=== PATIENT | male | born 1985 | race Caucasian/White ===

== ENCOUNTER 2024-02-21 12:33 | Inpatient (IN) | payer BC, SELFPAY ==
[2024-02-20 11:46] VITALS: BP 134/94
[2024-02-20 12:46] LABS: % Basophils 0.4 % (0-2); % Eosinophils 0.6 % (0-6); % Immature Granulocytes 0.3 % (0-0.5); % Lymphocytes 9.1 % (20.5-51.1); % Monocytes 6.5 % (1.7-9.3); % Neutrophils 83.1 % (42.2-75.2); Absolute Basophils 0.1 10^3/uL (0-0.2); Absolute Eosinophils 0.1 10^3/uL (0-0.7); Absolute Immature Granulocytes 0.1 10^3/uL (0-0.05); Absolute Lymphocytes 1.6 10^3/uL (1.2-3.4); Absolute Monocytes 1.1 10^3/uL (0.1-0.6); Absolute Neutrophils 14.3 10^3/uL (1.4-6.5); Hematocrit 44.5 % (39.0-52.0); Hemoglobin 15.5 g/dL (13.0-18.0); Mean Corp Hgb Conc. 34.8 g/dL (33.0-37.0); Mean Corpuscular Hgb 29.1 pg (27.0-31.0); Mean Corpuscular Volume 83.5 fL (80.0-94.0); Mean Platelet Volume 10.3 fL (7.4-10.4); Nucleated Red Blood Cells % 0 % (-); Platelet Count 252 10^3/uL (130-400); Red Blood Cell Count 5.33 10^6/uL (4.70-6.10); Red Cell Dist. Width 12.2 % (11.5-14.5); White Blood Cell Count 17.2 10^3/uL (4.8-10.8)
[2024-02-20 13:00] LABS: ALT (SGPT) 27 U/L (0-50); AST (SGOT) 19 U/L (17-59); Alkaline Phosphatase 86 U/L (38-126); Blood Urea Nitrogen 10 mg/dl (9-20); Calcium 9.6 mg/dl (8.4-10.2); Carbon Dioxide 27 mmol/L (22-30); Chloride 98 mmol/L (98-107); Glucose 109 mg/dl (70-99); Lipase 73 U/L (23-300); Potassium 4.1 mmol/L (3.5-5.1); Sodium 137 mmol/L (135-145); Total Bilirubin 1.2 mg/dl (0.2-1.3); Total Protein 8.5 g/dl (6.3-8.2); eGFR > 60.00
[2024-02-20] MEDS: NSS 1000 IV ×2 (13:17→20:39)
[2024-02-20] MEDS: TORADOL 15 MG IV (13:17)
--- NOTE | 2024-02-20 13:43 | ED.GENMED ---
History of Present Illness
<Logan Collins MD - Last Filed: 02/21/24 14:03>
General
Chief Complaint: Abdominal Pain
Source: patient
Exam Limitations: none
Time Seen by Provider: 02/20/24 12:37
Travel History
Have you had any contact with someone who has COVID-19?: No
Do you have any symptoms of coronavirus? Fever > 100 degrees, chills, cough, shortness of breath, sore throat, loss of taste or smell, muscle aches, or headache?: No
History of Present Illness
History of Present Illness:
Left lower quadrant pain. Progressive over 3 to 4 days. History of diverticulitis. Feels similar. No fever nausea or vomiting.
Past History
<Logan Collins MD - Last Filed: 02/21/24 14:03>
Past History
ED Past Medical History: Other (Recurring diverticulitis)
ED Past Surgical History: None
Social History
Tobacco: Non-smoker
Alcohol: Occasional
Personal:
Review of Systems
<Logan Collins MD - Last Filed: 02/21/24 14:03>
Review of Systems
All Other Systems: Not applicable
Constitutional: Denies fever
: Reports no symptoms
Phy Exam
<Logan Collins MD - Last Filed: 02/21/24 14:03>
Physical Exam
Physical Exam:
GENERAL: Alert and oriented in no apparent distress
EYE: Orbits normal.
NECK: Supple
CARDIAC: Regular rate and rhythm without any obvious murmurs.
LUNGS: Clear breath sounds,normal
ABDOMEN: Soft, moderate tenderness left lower quadrant. No rebound or guarding no mass or hernia
NEUROLOGICAL: Alert and oriented , grossly non-focal
SKIN: Warm and dry, no rash or lesion, no discoloration, skin intact.
MUSCULOSKELETAL: No edema,no deformity.Good color
PSYCH: Normal and appropriate interaction.
Course
<Logan Collins MD - Last Filed: 02/21/24 14:03>
Orders/Labs/Results
Orders:
Orders
02/20/24 12:35
Complete Blood Count/With Diff Urgent
Comprehensive Metabolic Panel Urgent
Lipase Urgent
02/20/24 12:41
CT Abd/Pel (IV only)-DH only Urgent
Comment:
Reason For Exam: Left lower quadrant pain history of diverticulitis
IV Insert/Care/Rem.- Treatment PRN
0.9% Sodium Chloride 1000 ml [Nss] 1,000 ml IV BOLUS
02/20/24 13:16
Ketorolac [Toradol] 15 mg .ROUTE .STK-MED ONE
Ketorolac [Toradol] 15 mg .ROUTE .STK-MED ONE
Ketorolac [Toradol] 15 mg IV NOW STA
02/20/24 14:44
HYDROmorphone [Dilaudid] 0.5 mg IV NOW STA
02/20/24 14:45
HYDROmorphone [Dilaudid] 0.5 mg .ROUTE .STK-MED ONE
HYDROmorphone [Dilaudid] 0.5 mg .ROUTE .STK-MED ONE
02/20/24 16:22
CefTRIAXone [Rocephin] 1,000 mg IV NOW STA
MetroNIDAZOLE 500 MG/100 ML [Flagyl 500 mg] 100 ml IV NOW
02/20/24 16:27
Sterile Water [Sterile Water For Injection] 10 ml .ROUTE .STK-MED ONE
Sterile Water [Sterile Water For Injection] 10 ml .ROUTE .STK-MED ONE
02/20/24 16:33
Lactate Level [Lactic Acid] Urgent
Blood Culture Q30M
XIMENA Source: Blood/Venous
Specimen Description:
Blood Culture Q30M
XIMENA Source: Blood/Venous
Specimen Description:
02/20/24 17:13
Admit/Transfer Patient As Directed
Co-Sign Provider:
Level of Care: Observation services
Assign to:: Medical/Surgical
Physician / Group: Ross/Hospitalist
Diagnosis: Acute diverticulitis
02/20/24 17:14
Code Status As Directed
Resuscitation Status: Full Code
02/20/24 18:41
0.9% Sodium Chloride 1000 ml [Nss] 1,000 ml IV 150 mls/hr
Acetaminophen [Tylenol] 650 mg PO Q4HPRN PRN
HYDROmorphone [Dilaudid] 0.5 mg IV Q4HPRN PRN
Tramadol HCl [Ultram] 50 mg PO Q6HPRN PRN
02/20/24 18:41
Activity As Directed
Activity Level: As Tolerated
Vital Signs As Directed
Frequency: Per unit guidelines
Pulse Ox/spot Check [RESP] Routine
Quantity: 1
DX Deep Vein Thrombosis Video Routine
02/20/24 20:00
Flush (0.9% Sodium Chloride) [Flush (Nss)] See Dose Instructions IV PER PROTOCOL
02/20/24 21:00
Enoxaparin Sodium [Lovenox] 40 mg SC QPM
02/20/24 22:00
Rosuvastatin Calcium [Crestor] 10 mg PO HS
02/21/24 00:00
MetroNIDAZOLE 500 MG/100 ML [Flagyl 500 mg] 100 ml IV Q8
02/21/24 07:20
Basic Metabolic Panel IN AM
Complete Blood Count/With Diff IN AM
02/21/24 08:00
Rosuvastatin Calcium [Crestor] 10 mg PO DAILY
02/21/24 Lunch
Full Liquids
At Your Request: Full Participation
Does patient need a safe tray?: No
Flush Continuous pump feedings with water (mL/hr): 25
02/21/24 12:17
ColoRectal Surgery Consult Routine
Consulting Provider: Edwin Gupta
Was physician already notified: Yes
02/21/24 16:00
CefTRIAXone [Rocephin] 1,000 mg IV Q24H
Sterile Water [Sterile Water For Injection] 10 ml IV Q24H
Abnormal Lab Results
02/20/24 02/21/24
12:35 07:20
WBC 17.2 H 10^3/uL 12.7 H 10^3/uL
(4.8-10.8) (4.8-10.8)
RBC 4.43 L 10^6/uL
(4.70-6.10)
Hct 38.5 L %
(39.0-52.0)
MPV 10.9 H fL
(7.4-10.4)
Abs Immat Gran (auto) 0.1 H 10^3/uL
(0-0.05)
Absolute Neuts (auto) 14.3 H 10^3/uL 10.1 H 10^3/uL
(1.4-6.5) (1.4-6.5)
Absolute Monos (auto) 1.1 H 10^3/uL 0.9 H 10^3/uL
(0.1-0.6) (0.1-0.6)
Neutrophils % 83.1 H % 79.0 H %
(42.2-75.2) (42.2-75.2)
Lymphocytes % 9.1 L % 12.5 L %
(20.5-51.1) (20.5-51.1)
Carbon Dioxide 21 L mmol/L
(22-30)
BUN 7 L mg/dl
(9-20)
Creatinine 0.6 L mg/dL
(0.7-1.3)
Glucose 109 H mg/dl 100 H mg/dl
(70-99) (70-99)
Total Protein 8.5 H g/dl
(6.3-8.2)
02/21/24 07:20
02/21/24 07:20
Vital Signs
Initial and Last Documented VS:
Initial Vital Signs
Temp Pulse Resp BP Pulse Ox
98.6 F 102 18 134/94 99
02/20/24 11:46 02/20/24 11:46 02/20/24 11:46 02/20/24 11:46 02/20/24 11:46
Last Documented Vital Signs
Temp Pulse Resp BP Pulse Ox
98.4 F 81 18 155/94 100
02/21/24 08:00 02/21/24 08:00 02/21/24 08:00 02/21/24 08:00 02/21/24 08:00
<Wenceslao Murphy MD - Last Filed: 02/20/24 16:26>
Orders/Labs/Results
Orders:
Orders
02/20/24 12:35
Complete Blood Count/With Diff Urgent
Comprehensive Metabolic Panel Urgent
Lipase Urgent
02/20/24 12:41
CT Abd/Pel (IV only)-DH only Urgent
Comment:
Reason For Exam: Left lower quadrant pain history of diverticulitis
IV Insert/Care/Rem.- Treatment PRN
0.9% Sodium Chloride 1000 ml [Nss] 1,000 ml IV BOLUS
02/20/24 13:16
Ketorolac [Toradol] 15 mg .ROUTE .STK-MED ONE
Ketorolac [Toradol] 15 mg .ROUTE .STK-MED ONE
Ketorolac [Toradol] 15 mg IV NOW STA
02/20/24 14:44
HYDROmorphone [Dilaudid] 0.5 mg IV NOW STA
02/20/24 14:45
HYDROmorphone [Dilaudid] 0.5 mg .ROUTE .STK-MED ONE
HYDROmorphone [Dilaudid] 0.5 mg .ROUTE .STK-MED ONE
02/20/24 16:22
CefTRIAXone [Rocephin] 1,000 mg IV NOW STA
MetroNIDAZOLE 500 MG/100 ML [Flagyl 500 mg] 100 ml IV NOW
02/20/24 16:27
Sterile Water [Sterile Water For Injection] 10 ml .ROUTE .STK-MED ONE
Sterile Water [Sterile Water For Injection] 10 ml .ROUTE .STK-MED ONE
02/20/24 16:33
Lactate Level [Lactic Acid] Urgent
Blood Culture Q30M
XIMENA Source: Blood/Venous
Specimen Description:
Blood Culture Q30M
XIMENA Source: Blood/Venous
Specimen Description:
02/20/24 17:13
Admit/Transfer Patient As Directed
Co-Sign Provider:
Level of Care: Observation services
Assign to:: Medical/Surgical
Physician / Group: Ross/Hospitalist
Diagnosis: Acute diverticulitis
02/20/24 17:14
Code Status As Directed
Resuscitation Status: Full Code
02/20/24 18:41
0.9% Sodium Chloride 1000 ml [Nss] 1,000 ml IV 150 mls/hr
Acetaminophen [Tylenol] 650 mg PO Q4HPRN PRN
HYDROmorphone [Dilaudid] 0.5 mg IV Q4HPRN PRN
Tramadol HCl [Ultram] 50 mg PO Q6HPRN PRN
02/20/24 18:41
Activity As Directed
Activity Level: As Tolerated
Vital Signs As Directed
Frequency: Per unit guidelines
Pulse Ox/spot Check [RESP] Routine
Quantity: 1
DX Deep Vein Thrombosis Video Routine
02/20/24 20:00
Flush (0.9% Sodium Chloride) [Flush (Nss)] See Dose Instructions IV PER PROTOCOL
02/20/24 21:00
Enoxaparin Sodium [Lovenox] 40 mg SC QPM
02/20/24 22:00
Rosuvastatin Calcium [Crestor] 10 mg PO HS
02/21/24 00:00
MetroNIDAZOLE 500 MG/100 ML [Flagyl 500 mg] 100 ml IV Q8
02/21/24 07:20
Basic Metabolic Panel IN AM
Complete Blood Count/With Diff IN AM
02/21/24 08:00
Rosuvastatin Calcium [Crestor] 10 mg PO DAILY
02/21/24 Lunch
Full Liquids
At Your Request: Full Participation
Does patient need a safe tray?: No
Flush Continuous pump feedings with water (mL/hr): 25
02/21/24 12:17
ColoRectal Surgery Consult Routine
Consulting Provider: Edwin Gupta
Was physician already notified: Yes
02/21/24 16:00
CefTRIAXone [Rocephin] 1,000 mg IV Q24H
Sterile Water [Sterile Water For Injection] 10 ml IV Q24H
Abnormal Lab Results
02/20/24 02/21/24
12:35 07:20
WBC 17.2 H 10^3/uL 12.7 H 10^3/uL
(4.8-10.8) (4.8-10.8)
RBC 4.43 L 10^6/uL
(4.70-6.10)
Hct 38.5 L %
(39.0-52.0)
MPV 10.9 H fL
(7.4-10.4)
Abs Immat Gran (auto) 0.1 H 10^3/uL
(0-0.05)
Absolute Neuts (auto) 14.3 H 10^3/uL 10.1 H 10^3/uL
(1.4-6.5) (1.4-6.5)
Absolute Monos (auto) 1.1 H 10^3/uL 0.9 H 10^3/uL
(0.1-0.6) (0.1-0.6)
Neutrophils % 83.1 H % 79.0 H %
(42.2-75.2) (42.2-75.2)
Lymphocytes % 9.1 L % 12.5 L %
(20.5-51.1) (20.5-51.1)
Carbon Dioxide 21 L mmol/L
(22-30)
BUN 7 L mg/dl
(9-20)
Creatinine 0.6 L mg/dL
(0.7-1.3)
Glucose 109 H mg/dl 100 H mg/dl
(70-99) (70-99)
Total Protein 8.5 H g/dl
(6.3-8.2)
02/21/24 07:20
02/21/24 07:20
Vital Signs
Initial and Last Documented VS:
Initial Vital Signs
Temp Pulse Resp BP Pulse Ox
98.6 F 102 18 134/94 99
02/20/24 11:46 02/20/24 11:46 02/20/24 11:46 02/20/24 11:46 02/20/24 11:46
Last Documented Vital Signs
Temp Pulse Resp BP Pulse Ox
98.4 F 81 18 155/94 100
02/21/24 08:00 02/21/24 08:00 02/21/24 08:00 02/21/24 08:00 02/21/24 08:00
<Logan Collins MD - Last Filed: 02/21/24 14:03>
MDM/Problems Addressed
Differential Diagnosis Includes:
Very suspicious for diverticulitis. Moderate leukocytosis. CT scan pending
<Logan Collins MD - Last Filed: 02/21/24 14:03>
*Radiology
Radiology exam reviewed: radiology read reviewed (Severe acute diverticulitis)
*Pulse Oximetry
Patient hypoxic: no
*Critical Care Note
Total Time (30-74mins, 75-104mins- exclusive of procedures): Not Applicable
<Wenceslao Murphy MD - Last Filed: 02/20/24 16:26>
Update Note
Update Note:
UPDATE (Wenceslao Murphy MD)
I saw and examined patient after signout and reviewed all labs and imaging.
Focused HPI: 38-year-old male with history of hyperlipidemia and prior diverticulitis who presented to the emergency room today for evaluation of left lower quadrant abdominal pain for the past week. No nausea or vomiting, no diarrhea. Similar to
prior episodes of diverticulitis.
Physical exam: Awake alert and not in distress. Abdomen soft, markedly tender in left lower quadrant with voluntary guarding.
Medical Decision Makin-year-old male presents for evaluation of left lower quadrant abdominal pain worsening over the past week similar prior episodes of diverticulitis. He arrived was tachycardic but with otherwise normal vitals. He had lab
work sent off including a CBC which showed a significant leukocytosis to 17.2. His CMP was unremarkable. He is pending CT of the abdomen pelvis. He received an initial dose of Toradol without improvement in his pain required IV Dilaudid. His
pain is reasonably controlled at present. Will continue to monitor and reassess after the above. Given multiple SIRS criteria and concern for intra-abdominal infection I did add on lactate and blood cultures.
CT of the abdomen pelvis shows severe acute diverticulitis with no clear signs of perforation or abscess; nevertheless with his significant pain and multiple SIRS criteria I think he warrants admission for IV antibiotics and pain management. Case
discussed with hospitalist for admission.
ED Attending Note
<Logan Collins MD - Last Filed: 02/21/24 14:03>
-
Portions of this chart may have been created with voice recognition software.� Occasional wrong word or��sound alike� substitutions may have occurred due to the inherent limitations of voice recognition software.
Discharge Plan
Departure
Patient Disposition: Admit
Date of Disposition: 02/20/24
Time of Disposition: 16:25
Admit to doctor: Ross
Presentation/result/management discussed w/ accepting MD/DO: Hospitalist
Discharge Problem:
Acute diverticulitis
Interventions
Interventions:
*Risk Screen - Suicide Last Done: 02/20/24 11:46
*General Assessment Last Done: 02/20/24 12:29
*Neglect/Abuse Screening Last Done: 02/20/24 11:46
ED- Fall Risk Assessment Last Done: 02/20/24 13:00
*ED COVID-19 Vaccine History Last Done: 02/20/24 11:46
*Nursing Disposition Last Done: 02/20/24 18:35
MW-Zagqji-Yzqqdckyck Assessment Last Done: 02/20/24 13:00
Discharge Date and Time
Discharge Date/Time: 02/20/24 18:36
[2024-02-20] MEDS: DILAUDID 0.5 MG IV (14:51)
[2024-02-20] MEDS: ROCEPHIN 1000 MG IV (16:36)
[2024-02-20] MEDS: FLAGYL 500 MG 100 IV (16:36)
[2024-02-20 16:44] VITALS: BP 139/97
[2024-02-20 16:52] LABS: Lactic Acid 0.9 mmol/L (0.7-2.0)
--- NOTE | 2024-02-20 16:52 | HPS.HSE ---
Family Physician
-
Family Physician: Maura Bravo
Chief Complaint
-
LLE abdominal pain
History of Present Illness
The patient is a 38 yo male with PMH significant for diverticulitis (an episode last summer and 05/2022) that have resolved previously with antibiotics, HLD, presents to the ED due to left lower quadrant abdominal pain for the past several days. The
patient ate only clear liquids yesterday and today, however the pain became worse which brought him into the ED. He denies fever, no n/v/d, no CP, no SOB, no blood in bowel movements.In ED, he is tachycardic (pulse 111), WBC 17.2. CT a/p in ED shows
severe acute diverticulitis with no clear signs of perforation or abscess.
ED txt:
IVF 1 liter bolus, IV Ketorolac, IV Dilaudid, IV Rocephin, IV Flagyl
Medical History
Past Medical History
Past Medical History: Reports Other (Diverticulitis (2 episodes since 2021))
Past Surgical History: Reports None
Social History
Tobacco: Non-smoker
Alcohol: Occasional
Drug: Marijuana (occasional )
Living: With Family ( and 2 children)
Family History
Family History: Other (Mother w diverticulitis)
Allergies / Home Medications
Allergies reflects when Allergies were last updated in [facility].
Home Medications with original date entered in [facility]
Allergy/Medication List:
Allergies
Allergy/AdvReac Type Severity Reaction Status Date / Time
No Known Allergies Allergy Verified 02/20/24 11:49
Home Medications
rosuvastatin 10 mg tablet 10 mg PO DAILY 02/20/24
Review of Systems
-
A 12 point ROS was completed and negative except as noted: Yes
Physical Exam
Vital Signs
Vital Signs
Temp Pulse Resp BP Pulse Ox
98.6 F 111 18 139/97 98
02/20/24 11:46 02/20/24 16:44 02/20/24 16:44 02/20/24 16:44 02/20/24 16:44
Physical Exam
General: Well Developed, Well Nourished, No Apparent Distress and Conversant
HEENT: NormoCephalic, Anicteric and Moist mucous membranes
Respiratory: Clear
Cardiac: S1/S2 and Tachycardia
GI: Soft and Tender (acutely tender LLQ with voluntary guarding, no peritoneal signs)
Musculoskeletal: No Clubbing, No Cyanosis and No Edema
Skin: Warm and Dry
Neuro: AO x 3, No Motor Deficits and Nonfocal/grossly intact
Laboratory Results
-
02/20/24 12:35
02/20/24 12:35
Laboratory Results
Lactic Acid 0.9 mmol/L (0.7-2.0) 02/20/24 16:33
Total Bilirubin 1.2 mg/dl (0.2-1.3) 02/20/24 12:35
AST 19 U/L (17-59) 02/20/24 12:35
ALT 27 U/L (0-50) 02/20/24 12:35
Alkaline Phosphatase 86 U/L (38-126) 02/20/24 12:35
Lipase 73 U/L (23-300) 02/20/24 12:35
Data Reviewed
-
CT Scan: Report Reviewed by me ( 1. SEVERE ACUTE DIVERTICULITIS in the DISTAL DESCENDING COLON. 2. Small amount of peritoneal fluid in the left paracolic gutter and pelvis. 3. No CT evidence for pericolonic abscess or pneumoperitoneum.)
Impression/Plan
-
IMPRESSION:
#Acute severe diverticulitis in the distal descending colon with history of recurrent diverticulitis with leukocytosis and tachycardia
CT a/p:
- SEVERE ACUTE DIVERTICULITIS in the DISTAL DESCENDING COLON.
- Small amount of peritoneal fluid in the left paracolic gutter and pelvis.
- No CT evidence for pericolonic abscess or pneumoperitoneum.
-monitor clinically
-clear liquids
-IVF
-IV abx - continue Rocephin and Flagyl
#HLD
- statin
DVT proph - Lovenox
Full Code
[2024-02-20 18:47] VITALS: BP 144/92
--- NOTE | 2024-02-20 19:00 | PTCARENOTE ---
Pt was received from ED at 1850. Pt ambulated to the room. Temp 101.2 on arrival. Pt complaining of 4/10 LLQ abd pain. Reviewed available pain meds and the care plan with pt. at the bedside.
[2024-02-20 20:07] VITALS: BMI 28.4
[2024-02-20] MEDS: LOVENOX 40 MG SC (20:39)
[2024-02-20] MEDS: ULTRAM 50 MG PO (20:40)
[2024-02-20] MEDS: CRESTOR 10 MG PO (20:40)
[2024-02-21 00:04] VITALS: BP 133/87
[2024-02-21] MEDS: FLAGYL 500 MG 100 IV ×4 (00:15→23:14)
[2024-02-21] MEDS: NSS 1000 IV (02:55)
[2024-02-21] MEDS: TYLENOL 650 MG PO ×4 (02:58→20:15)
[2024-02-21 07:56] LABS: % Basophils 0.5 % (0-2); % Eosinophils 0.6 % (0-6); % Immature Granulocytes 0.3 % (0-0.5); % Lymphocytes 12.5 % (20.5-51.1); % Monocytes 7.1 % (1.7-9.3); Absolute Basophils 0.1 10^3/uL (0-0.2); Absolute Eosinophils 0.1 10^3/uL (0-0.7); Absolute Lymphocytes 1.6 10^3/uL (1.2-3.4); Absolute Monocytes 0.9 10^3/uL (0.1-0.6); Absolute Neutrophils 10.1 10^3/uL (1.4-6.5); Hematocrit 38.5 % (39.0-52.0); Mean Corp Hgb Conc. 33.8 g/dL (33.0-37.0); Mean Corpuscular Hgb 29.3 pg (27.0-31.0); Mean Corpuscular Volume 86.9 fL (80.0-94.0); Mean Platelet Volume 10.9 fL (7.4-10.4); Nucleated Red Blood Cells % 0 % (-); Platelet Count 192 10^3/uL (130-400); Red Blood Cell Count 4.43 10^6/uL (4.70-6.10); Red Cell Dist. Width 12.1 % (11.5-14.5); White Blood Cell Count 12.7 10^3/uL (4.8-10.8)
[2024-02-21 08:00] VITALS: BP 155/94
[2024-02-21 08:06] LABS: Blood Urea Nitrogen 7 mg/dl (9-20); Calcium 8.9 mg/dl (8.4-10.2); Carbon Dioxide 21 mmol/L (22-30); Chloride 105 mmol/L (98-107); Estimated Creatinine Clearance > 125 ml/min; Glucose 100 mg/dl (70-99); Potassium 4.1 mmol/L (3.5-5.1); Sodium 137 mmol/L (135-145); eGFR > 60.00
--- NOTE | 2024-02-21 12:26 | W.PN.HOSP.TC ---
Today's Communication/Plan
-
follow WBC count
consult CRS
advance to full liquids
Assessment / Plan
Assessment / Plan
Pt is a 38 year old male
Acute severe diverticulitis in the distal descending colon with history of recurrent diverticulitis with leukocytosis and tachycardia--no abscess or perforation--tolerating clears--consult CRS (may need resection as outpt)--cont
rocephin/flagyl--advance to full liquids
HLD-- statin
DVT proph - Lovenox
Code status --Full Code
Anticipated Discharge: 24 - 48 hours
Subjective/Interval History
-
Date of Service: February 21, 2024
pt tolerating clears--WBC improved--pain improved
Objective Data
-
Labs:
Laboratory Results
02/21/24
07:20
WBC 12.7 H
Hgb 13.0
Hct 38.5 L
Plt Count 192 D
Sodium 137
Potassium 4.1
Chloride 105
Carbon Dioxide 21 L
BUN 7 L
Creatinine 0.6 L
Glucose 100 H
Calcium 8.9
Vital Signs:
max temp for 24 hours
02/20/24
18:47
Temp 101.2 F H
Vital Signs
Temp Pulse Resp BP Pulse Ox
98.4 F 81 18 155/94 100
02/21/24 08:00 02/21/24 08:00 02/21/24 08:00 02/21/24 08:00 02/21/24 08:00
I&O
02/20/24 02/21/24 02/22/24
06:59 06:59 06:59
Intake Total 2109
Balance 2109
Review of Systems
-
All other systems: Reviewed and negative
Abdomen/GI: Reports Abdominal Pain (improved)
Physical Exam
-
General: Well Developed, Well Nourished and No Apparent Distress
HEENT: Normocephalic and Atraumatic
Respiratory: Clear to Auscultation; Negative Wheezes or Rhonchi
Cardiac: Regular Rhythm and S1/S2; Negative Murmur
GI: Soft and Tender (LLQ without guarding or rebound)
Musculoskeletal: No Clubbing, No Cyanosis and No Edema
Neuro: Awake and Alert
--- NOTE | 2024-02-21 12:50 | CON.CRS ---
Addendum entered and electronically signed by Edwin Gupta MD 02/21/24 14:14:
Patient seen and examined. Reassessment plan as documented below.
Patient is a 38 yo M with a PMH notable for uncomplicated diverticulitis requiring hospitalization in 2021 ( and 2022 ([place]) who presents with 2 to 3 days of LLQ abdominal pain. He attempted medical management at home with a clear liquid diet
without significant improvement. His persistent pain prompted presentation to the ED. No fevers or chills at home, noted to be febrile in the ED. No nausea or vomiting. Passing flatus and looser nonbloody stool. Currently he feels well with
improved pain.
Gen: NAD
Abd: soft, mild tenderness in LLQ, ND, non-peritoneal
Labs and imaging were reviewed.
Patient is a 38 yo M p/w acute uncomplicated diverticulitis
The natural history and pathophysiology of diverticulitis was discussed. Role of surgical intervention for complicated episodes that do not resolve with medical management, as well as elective sigmoid resection to prevent future episodes of
diverticulitis was discussed. No plans for surgical intervention at this time. Recommend medical management with IV antibiotics. All questions answered.
-- No plans for surgery at this time
-- Fulls
-- Zosyn
-- Pain control: Tylenol and Toradol
Original Note:
Medical History
-
Chief Complaint: abdominal pain
History of Present Illness:
Mr Erickson is a 38 yo male who has a history of uncomplicated diverticulitis requiring hospitalization in the summer of 2021 () and 2022([place]) who presents with LLQ abdominal pain which began mid week around . He stopped solid foods and
started a clear liquid diet at home without much improvement. He noted continued worsening symptoms and presented Thursday through the ED for evaluation. He denies fevers [employer] but did have a fever yesterday evening of 101.2 with no further fevers
since that time. He notes his symptoms have lessened since presentation although still present. LLQ is moderately tender to palpation on exam.
Past Medical History
Past Medical History: Diverticulitis
Past Surgical History: None
Social History
Tobacco: Non-Smoker
Alcohol: Occasional
Personal:
Living: With Family
Employment: Employed (works in [employer])
Family History
Family History: Reviewed & Not Pertinent
Allergies / Home Medications
Allergy/AdvReac Type Severity Reaction Status Date / Time
No Known Allergies Allergy Verified 02/20/24 11:49
�Medication �Instructions �Recorded �Confirmed �Type
rosuvastatin 10 mg tablet 10 mg PO DAILY High Cholesterol 02/20/24 02/20/24 History
Review of Systems
-
History Source: Patient
All other systems: Negative unless noted
A 10 point review of systems was completed, and was negative except as per HPI.
Physical Exam
Vital Signs
Temp 98.4 F 02/21/24 08:00
Pulse 81 02/21/24 08:00
Resp Rate 18 02/21/24 08:00
Blood pressure 155/94 02/21/24 08:00
SaO2 100 02/21/24 08:00
02/20/24 02/21/24 02/22/24
06:59 06:59 06:59
Actual Weight 84.623 kg
Body Mass Index (BMI) 28.4
Lab Results / Allergies
02/21/24 07:20
02/21/24 07:20
WBC 12.7 10^3/uL (4.8-10.8) H 02/21/24 07:20
Hgb 13.0 g/dL (13.0-18.0) 02/21/24 07:20
Hct 38.5 % (39.0-52.0) L 02/21/24 07:20
Plt Count 192 10^3/uL (130-400) D 02/21/24 07:20
Abs Immat Gran (auto) 0.0 10^3/uL (0-0.05) 02/21/24 07:20
Neutrophils % 79.0 % (42.2-75.2) H 02/21/24 07:20
Allergy/AdvReac Type Severity Reaction Status Date / Time
No Known Allergies Allergy Verified 02/20/24 11:49
Physical Exam
General: Well Developed and No Apparent Distress
HEENT: Normocephalic
Respiratory: Non Labored Respirations
GI: Soft, Non Distended and Tender (moderate to deep palpation to the LLQ)
Skin: Warm and Dry
Neuro: Awake, Alert and AO x 3
Psych: Calm
Data Reviewed
-
CT Scan: Image Personally Visualized and interpreted, Report Reviewed by me, Discussed with Physician and Discussed with Patient
Labs: Labs Reviewed by me, Discussed with Physician and Discussed with Patient
Old Records: Reviewed
Assessment / Plan
-
38 yo male with h/o diverticulitis x2 presenting yesterday with 3-4 day history of LLQ discomfort and feeling unwell. On admission, fever and leukocytosis noted. WBC trending down today without further fevers. CT imaging reviewed with significant
sigmoid diverticulitis present without evidence of abscess or perforation. No pneumoperitoneum. Improving with IV abx thus far.
Recommend outpatient colorectal follow up to discuss risk/benefits of elective surgery for removal of the diseased portion of the sigmoid colon to prevent recurrence after this current episode has resolved. No need for emergent operative
intervention as he continues to improve with medical/supportive management.
--Ok to advance to FLD
--Analgesics/Antiemetics as needed
--Continue IV ABX
[2024-02-21 15:32] VITALS: BP 142/81
[2024-02-21] MEDS: STERILE WATER FOR INJECTION 10 ML IV (15:50)
[2024-02-21] MEDS: ROCEPHIN 1000 MG IV (15:50)
[2024-02-21] MEDS: LOVENOX 40 MG SC (17:19)
[2024-02-21] MEDS: ULTRAM 50 MG PO (17:34)
[2024-02-21] MEDS: CRESTOR 10 MG PO (20:15)
[2024-02-21 23:02] VITALS: BP 134/89
[2024-02-22 05:56] LABS: Hemoglobin 13.4 g/dL (13.0-18.0); Mean Corp Hgb Conc. 35.3 g/dL (33.0-37.0); Mean Corpuscular Hgb 29.6 pg (27.0-31.0); Mean Corpuscular Volume 84.1 fL (80.0-94.0); Mean Platelet Volume 10.8 fL (7.4-10.4); Platelet Count 204 10^3/uL (130-400); Red Blood Cell Count 4.52 10^6/uL (4.70-6.10); Red Cell Dist. Width 12.2 % (11.5-14.5); White Blood Cell Count 10.1 10^3/uL (4.8-10.8)
[2024-02-22 06:24] LABS: ALT (SGPT) 16 U/L (0-50); AST (SGOT) 15 U/L (17-59); Albumin 3.8 g/dl (3.5-5.0); Alkaline Phosphatase 75 U/L (38-126); Blood Urea Nitrogen 6 mg/dl (9-20); Calcium 8.9 mg/dl (8.4-10.2); Carbon Dioxide 24 mmol/L (22-30); Chloride 104 mmol/L (98-107); Estimated Creatinine Clearance > 125 ml/min; Glucose 94 mg/dl (70-99); Magnesium 2.2 mg/dl (1.6-2.3); Sodium 140 mmol/L (135-145); Total Bilirubin 0.5 mg/dl (0.2-1.3); Total Protein 6.8 g/dl (6.3-8.2); eGFR > 60.00
[2024-02-22 08:20] VITALS: BP 145/94
[2024-02-22] MEDS: FLAGYL 500 MG 100 IV (09:22)
--- NOTE | 2024-02-22 09:28 | W.PN.HOSP.TC ---
Today's Communication/Plan
-
Discharge today
Assessment / Plan
Assessment / Plan
Physical Exam
General: Well Developed, Well Nourished and No Apparent Distress
HEENT: Normocephalic and Atraumatic
Respiratory: Clear to Auscultation Bilaterally
Cardiac: Regular Rhythm and S1/S2=
GI: Soft and Minimal Tenderness (LLQ without guarding or rebound). Positive bowel sounds.
Musculoskeletal: No Cyanosis and No Edema
Neuro: Awake and Alert

Assessment/Plan
Pt is a 38 year old male
Acute severe diverticulitis in the distal descending colon with history of recurrent diverticulitis with leukocytosis and tachycardia--no abscess or perforation--tolerating clears--consult CRS (may need resection as outpt)--cont rocephin/flagyl
--diet advanced to low residue diet
-No fever in the past almost 48 hours
-Tachycardia has improved
-Leukocytosis has resolved
-Tolerating diet
-Transition to Augmentin either 875 mg Q8H through March 05, 2024 to complete 14 days of antibiotics
-Outpatient follow-up with surgeon Dr. Gupta
-Pain control with Tylenol and NSAIDs
HLD-- statin
DVT proph - Lovenox
Code status --Full Code
More than 30 minutes spent in discharge including
Final examination of the patient
Summarizing hospital stay
Instructions for continuing care to all relevant caregivers
Preparation of discharge records, prescriptions, and referral forms
Total time spent (in minutes): 39
Anticipated Discharge: Today
Subjective/Interval History
-
Date of Service: February 22, 2024
Patient was seen and examined. He reported essentially no to minimal abdominal pain, no vomiting, wants to go home today.
Objective Data
-
Labs:
Laboratory Results
02/22/24
05:25
WBC 10.1
Hgb 13.4
Hct 38.0 L
Plt Count 204
Sodium 140
Potassium 4.0
Chloride 104
Carbon Dioxide 24
BUN 6 L
Creatinine 0.7
Glucose 94
Calcium 8.9
Total Bilirubin 0.5
AST 15 L
ALT 16
Alkaline Phosphatase 75
Vital Signs:
Vital Signs
Temp Pulse Resp BP Pulse Ox
98.8 F 95 16 145/94 98
02/22/24 08:20 02/22/24 08:20 02/22/24 08:20 02/22/24 08:20 02/22/24 08:20
I&O
02/21/24 02/22/24 02/23/24
06:59 06:59 06:59
Intake Total 2109 1540 / 1540
Output Total 200 / 200
Balance 2109 1340 / 1340
--- NOTE | 2024-02-22 10:08 | W.PN.GS2 ---
Addendum entered and electronically signed by Edwin Gupta MD 02/22/24 10:44:
Patient seen and examined. Assessment plan as documented below.
Pain improved. Afebrile. Tolerating full's. No nausea or vomiting. Passing flatus and stool.
Gen: NAD
Abd: soft, NT/ND, non-peritoneal
Patient is a 38 yo M p/w acute uncomplicated diverticulitis (3rd episode)
AFVSS
Normal WBC
Tolerating diet advancement
-- Advance to LRD
-- No plans for surgery at this time, will plan outpatient follow up with colorectal surgical team to discuss elective surgery to prevent recurrence
-- Pain control: Tylenol and Toradol
-- Outpatient follow-up with CRS
Clear for d/c from surgical standpoint this afternoon on PO abx if tolerating diet
Original Note:
Today's Communication / Plan
-
Advance diet
Dispo planning
Assessment / Plan
-
38 yo M p/w acute uncomplicated diverticulitis (3rd episode)
AFVSS
Normal WBC
Tolerating diet advancement
-- Advance to LRD
-- No plans for surgery at this time, will plan outpatient follow up with colorectal surgical team to discuss elective surgery to prevent recurrence
-- Pain control: Tylenol and Toradol
Clear for d/c from surgical standpoint this afternoon on PO abx if tolerating diet
Subjective Data
-
Date of Service: February 22, 2024
Patient seen and examined at bedside with Dr. Gupta. Denies n/v. Tolerating liquids. Pain improving.
Objective Data
-
Intake and Output
02/21/24 02/22/24 02/23/24
06:59 06:59 06:59
Intake Total 2109 1540 / 1540
Output Total 200 / 200
Balance 2110 / 2110 1340 / 1340
Intake:
Oral fluids 360 / 360 1440 / 1440
IV fluids (Total) 1650 / 1650
IV piggybacks 100 / 100 100 / 100
Output:
Urine, Voided 200 / 200
Other:
Number of approximated MODERATE 1
amounts of urine
How many times incontinent 2
MODERATE amount urine
Vital Signs
Temp Pulse Resp BP Pulse Ox
98.8 F 95 16 145/94 98
02/22/24 08:20 02/22/24 08:20 02/22/24 08:20 02/22/24 08:20 02/22/24 08:20
Lab Results
02/22/24 05:25
02/22/24 05:25
Calcium 8.9 mg/dl (8.4-10.2) 02/22/24 05:25
Magnesium 2.2 mg/dl (1.6-2.3) 02/22/24 05:25
Total Bilirubin 0.5 mg/dl (0.2-1.3) 02/22/24 05:25
AST 15 U/L (17-59) L 02/22/24 05:25
ALT 16 U/L (0-50) 02/22/24 05:25
Alkaline Phosphatase 75 U/L (38-126) 02/22/24 05:25
Total Protein 6.8 g/dl (6.3-8.2) 02/22/24 05:25
Albumin 3.8 g/dl (3.5-5.0) 02/22/24 05:25
Physical Exam
-
NAD
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
--- NOTE | 2024-02-22 10:56 | CM ---
Patient seen bedside.
IA completed.
Patient lives with spouse and 2 children in a 2 story home with 2 steps to enter.
No difficulty with steps.
patient works and drives.
No assistive devices, independent prior to dmission.
denies home care needs.
PCP: DR Sotomayor
Pharmacy: [facility]
Plan: home no needs.
[2024-02-22 15:03] VITALS: BP 138/92
--- NOTE | 2024-02-22 15:26 | W.DS.TRANS ---
DC Summary - Process Tech
-
Discharge Instructions:
Discharge Diagnosis/Procedures Acute severe diverticulitis with history of
recurrent diverticulitis
Hyperlipidemia
Diet Low Residue,Low Fat,Low Cholesterol
Additional Diets Eat a low fiber diet for the next 2-3 weeks,
check with your outpatient physician(s) before
changing your low fiber diet to something else
Activity As tolerated
Instructions: Low Fiber Diet
Amoxicillin and Clavulanate
Stand-Alone Forms:
Changes to Home Medications: Yes
Discharge Medications:
DC Medications w/original date entered in [facility]
rosuvastatin 10 mg tablet 10 mg PO DAILY High Cholesterol 02/20/24
amoxicillin 875 mg-potassium clavulanate 125 mg tablet 1 tab PO Q8H #39 tabs 02/22/24
Home Medication Changes
Amoxicillin-Potassium Clavulanate is a new medication.
Pending Results: Yes
Additional Pending Results:
Microbiology/culture results from the hospitalization
Total time spent discharging patient (in min): 39
--- NOTE | 2024-02-23 18:42 | W.DCSUMMARY ---
Discharge Summary
Discharge Data
Date of Admission: 02/21/24
Date of Discharge: 02/22/24
Total time spent discharging patient (in min): 39
-
Pending Results: Yes
Additional Pending Results:
Microbiology/culture results from the hospitalization
Hospital Course
38 y/o male with past medical history significant for diverticulitis (an episode last summer and 05/2022) that have resolved previously with antibiotics and hyperlipidemia, presented to the emergency department due to left lower quadrant abdominal
pain for the previous several days. In the emergency room, patient was tachycardic (pulse 111 beats per minute), leukocytosis with WBC 17.2. CT a/p in ED showed severe acute diverticulitis with no clear signs of perforation or abscess (however
please see full CT imaging report for all the details). Patient was started on antibiotics and intravenous fluids. The surgery team was consulted and they recommended surgery during hospitalization, and discussed with the patient elective sigmoid
resection to prevent future episodes of diverticulitis. Patient clinically improved, he was tolerating an advanced diet, his leukocytosis resolved and he was afebrile, and therefore he was discharged with antibiotics.
Discharge Plan
-
Patient Disposition: Home (Routine Discharge)
Discharge Diagnosis/Procedures: Acute severe diverticulitis with history of recurrent diverticulitis
Hyperlipidemia
Diet: Low Fat, Low Cholesterol and Low Residue
Additional Diets: Eat a low fiber diet for the next 2-3 weeks, check with your outpatient physician(s) before changing your low fiber diet to something else
Activity: As tolerated
Instructions: Low Fiber Diet, Amoxicillin and Clavulanate
Referrals:
Logan Villagomez MD [Active] - in two to four weeks
Maura Bravo MD [Family Provider] - in less than 1 week
Additional Discharge Medication Instructions: Amoxicillin-Pot Clavulanate is a new medication.
Prescriptions:
New
amoxicillin-pot clavulanate 875-125 mg tablet
1 tab PO Q8H Qty: 39 0RF
Continued
rosuvastatin 10 mg tablet
10 mg PO DAILY
Discharge Orders:
Discharge Patient (As Directed); Ordered 02/22/24
Ordered By: Derek Edwards
Discharge Date and Time
Discharge Date/Time: 02/22/24 15:45
Print Language: FRISIAN
== END 2024-02-22 15:45 | disposition home or self-care (01) | DRG 392 ==
LOC: 4 WEST ACU 12:33
PROVIDERS: Emergency Medicine; Internal Medicine; ADMITTING PHYSICIAN Internal Medicine; ATTENDING PHYSICIAN Hospitalist; CONSULT PHYSICIAN Surgery; EMERGENCY PHYSICIAN Emergency Medicine; FAMILY PHYSICIAN Internal Medicine
DX: K57.32 Diverticulitis of large intestine without perforation or abscess without bleeding (principal); E78.00 Pure hypercholesterolemia, unspecified
CPT/HCPCS: 74177; 80048; 80053; 83605; 83690; 83735; 85025; 85027; 87040; 93005; 96361; 96365; 96375; 99285; Q9967

== ENCOUNTER 2024-11-26 15:07 | Emergency (ER) | payer BC, SELFPAY ==
--- NOTE | 2024-11-26 17:07 | ED.GENMED ---
History of Present Illness
General
Chief Complaint: Musculo-Skeletal Complaint
Source: patient
Exam Limitations: none
Time Seen by Provider: 11/26/24 17:05
Nursing documentation reviewed up to this point in time: agreed with
History of Present Illness
History of Present Illness:
This is a 39-year-old male with past medical history of hyperlipidemia who presents emergency department today with concerns of right elbow pain. Patient reports that he was lifting up a heavy couch when he felt and heard a pop in his right elbow
and states that he noticed some bulging over his right bicep. Patient states that he does have full range of motion of his right upper extremity. He states that he did have transient numbness and tingling as well. He states that after this
occurred, he took some Motrin and reports Emergency Department. Patient states that he has never had anything like this occur in the past, does not currently follow with orthopedist. Patient denies any other injuries.
Past History
Past History
ED Past Medical History: Other (Recurring diverticulitis)
ED Past Surgical History: None
Social History
Tobacco: Non-smoker
Alcohol: Occasional
Personal:
Review of Systems
Review of Systems
All Other Systems: ROS reviewed and negative except as documented in HPI and ROS
Phy Exam
Physical Exam
Physical Exam:
General: Patient is well appearing and in no acute distress; non-toxic
Skin: Warm and dry, no rashes or lesions
Head: Normocephalic, atraumatic
Eyes: Sclera non-icteric. EOMs intact.
Cardiac: Regular rate and rhythm, no murmur
Peripheral Vascular: No lower extremity swelling or edema. 2+ brachial, radial, and ulnar pulses on the right.
Pulm: Normal respiratory effort, no wheezes, rales, or rhonchi
Musculoskeletal: No tenderness palpation of the right upper extremity. Full range of motion of the right upper extremity. Mild Doug deformity noted to right bicep.
Neuro: CN II-XII intact, no focal neurologic deficits.
Psychiatric: Appropriate mood and affect.
Course
Orders/Labs/Results
Orders:
Orders
11/26/24 15:18
Elbow, 3 View, Right [CR Elbow - Right Min 3 Views] Urgent
Comment:
Reason For Exam: pain, decreased ROM
11/26/24 17:33
Sling Right-Treatment ONCE
Vital Signs
Initial and Last Documented VS:
Initial Vital Signs
Temp Pulse Resp Pulse Ox
98.6 F 78 20 98
11/26/24 15:16 11/26/24 15:16 11/26/24 15:16 11/26/24 15:16
Last Documented Vital Signs
Temp Pulse Resp Pulse Ox
98.6 F 78 20 98
11/26/24 15:16 11/26/24 15:16 11/26/24 15:16 11/26/24 15:16
MDM/Problems Addressed
Differential Diagnosis Includes:
Musculoskeletal sprain/strain, elbow fracture, biceps tendon rupture
MDM/Problems Addressed:
39-year-old male past medical history of hyperlipidemia presents emergency department today with concerns of right elbow pain following lifting up a heavy couch. He states that he felt a pop in pain right away and noticed some bulging in his right
upper arm. History and physical exam consistent with partial biceps tendon rupture. X-ray negative for acute fracture. Case reviewed with orthopedist on-call. Will place in sling and will have patient call orthopedic office for prompt follow-up.
Return precautions discussed. Patient stable for discharge.
*Pulse Oximetry
Patient hypoxic: no
*Critical Care Note
Total Time (30-74mins, 75-104mins- exclusive of procedures): Not Applicable
ED Attending Note
-
Portions of this chart may have been created with voice recognition software.� Occasional wrong word or��sound alike� substitutions may have occurred due to the inherent limitations of voice recognition software.
Discharge Plan
Departure
Patient Disposition: Home (Routine Discharge)
Date of Disposition: 11/26/24
Time of Disposition: 17:36
Patient with high blood pressure during this ER visit?: No
Condition: Good
Discharge Problem:
Traumatic partial tear of biceps tendon
Instructions: Biceps Tendon Rupture (DC)
Prescriptions:
No Action
rosuvastatin 10 mg tablet
10 mg PO DAILY
amoxicillin-pot clavulanate 875-125 mg tablet
1 tab PO Q8H Qty: 39 0RF
Referrals:
Maura Bravo MD [Family Provider] -
Matteo Berger MD [Active] -
Activity Restrictions/Additional Instructions:
Please call attached number to schedule appointment to see the orthopedist.
You can take Tylenol and Motrin as needed for your symptoms.
PLEASE RETURN EMERGENCY DEPARTMENT SHOULD YOU DEVELOP LOSS OF SENSATION IN YOUR UPPER EXTREMITY, INABILITY TO MOVE YOUR ARM, LOSS OF SENSATION, ACUTE WORSENING OF YOUR PAIN,PALLOR, OR ANY OTHER SIGNS OR SYMPTOMS WORRISOME TO YOU.
Interventions
Interventions:
*Risk Screen - Suicide Last Done: 11/26/24 15:16
*General Assessment Last Done: 11/26/24 15:16
*Neglect/Abuse Screening Last Done: 11/26/24 17:52
*ED- Fall Risk Assessment Last Done: 11/26/24 17:52
*ED COVID-19 Vaccine History Last Done: 11/26/24 17:52
*Nursing Disposition Last Done: 11/26/24 17:53
ED-Musculoskeletal Assessment Last Done: 11/26/24 17:52
Discharge Date and Time
Discharge Date/Time: 11/26/24 17:53
Print Language: URDU
== END 2024-11-26 17:53 | disposition home or self-care (01) ==
LOC: EMR 15:07
PROVIDERS: EMERGENCY PHYSICIAN Emergency Medicine; FAMILY PHYSICIAN Internal Medicine
DX: S46.211A Strain of muscle, fascia and tendon of other parts of biceps, right arm, initial encounter (principal); X50.0XXA Overexertion from strenuous movement or load, initial encounter; E78.5 Hyperlipidemia, unspecified
CPT/HCPCS: 99283; 73080

== ENCOUNTER 2025-01-02 11:22 | Emergency (ER) | payer BC, SELFPAY ==
[2025-01-02 11:27] VITALS: BP 160/100
[2025-01-02 11:54] LABS: % Basophils 1.1 % (0-2); % Immature Granulocytes 0.2 % (0-0.5); % Lymphocytes 38.6 % (20.5-51.1); % Monocytes 6.2 % (1.7-9.3); % Neutrophils 51.9 % (42.2-75.2); Absolute Basophils 0.1 10^3/uL (0-0.2); Absolute Eosinophils 0.1 10^3/uL (0-0.7); Absolute Lymphocytes 2.1 10^3/uL (1.2-3.4); Absolute Monocytes 0.3 10^3/uL (0.1-0.6); Absolute Neutrophils 2.8 10^3/uL (1.4-6.5); Hematocrit 44.2 % (39.0-52.0); Hemoglobin 15.4 g/dL (13.0-18.0); Mean Corp Hgb Conc. 34.8 g/dL (33.0-37.0); Mean Corpuscular Hgb 29.5 pg (27.0-31.0); Mean Corpuscular Volume 84.7 fL (80.0-94.0); Mean Platelet Volume 10.4 fL (7.4-10.4); Nucleated Red Blood Cells % 0 % (-); Platelet Count 226 10^3/uL (130-400); Red Blood Cell Count 5.22 10^6/uL (4.70-6.10); Red Cell Dist. Width 11.8 % (11.5-14.5); White Blood Cell Count 5.5 10^3/uL (4.8-10.8)
[2025-01-02 12:12] LABS: ALT (SGPT) 36 U/L (0-50); AST (SGOT) 23 U/L (17-59); Albumin 5.1 g/dl (3.5-5.0); Alkaline Phosphatase 69 U/L (38-126); Blood Urea Nitrogen 12 mg/dl (9-20); Calcium 9.4 mg/dl (8.4-10.2); Carbon Dioxide 23 mmol/L (22-30); Chloride 105 mmol/L (98-107); Glucose 109 mg/dl (70-99); Lipase 161 U/L (23-300); Potassium 4.1 mmol/L (3.5-5.1); Sodium 141 mmol/L (135-145); Total Bilirubin 0.7 mg/dl (0.2-1.3); Total Protein 8.1 g/dl (6.3-8.2); eGFR > 60.00
--- NOTE | 2025-01-02 13:58 | ED.GENMED ---
History of Present Illness
General
Chief Complaint: Abdominal Pain
Time Seen by Provider: 01/02/25 13:43
History of Present Illness
History of Present Illness:
39-year-old male presents the emergency department for evaluation of mild generalized abdominal pain has been ongoing for the past 10 days. He has a past history of diverticulitis status post elective sigmoid colectomy and he is concerned this may
be a recurrent diverticulitis. Feels distinctly different than his past diverticular episodes. No fevers or chills. Does admit that he feels better over the past 48 hours than he had been feeling previously.
Past History
Past History
ED Past Medical History: Other (Recurring diverticulitis)
ED Past Surgical History: None
Social History
Tobacco: Non-smoker
Alcohol: Occasional
Personal:
Review of Systems
Review of Systems
Allergies reviewed?: Yes
All Other Systems: ROS reviewed and negative except as documented in HPI and ROS
Phy Exam
Physical Exam
Physical Exam:
GEN: Well appearing, NAD, WDWN
HEENT: Oral mucosa moist, no scleral icterus
Cardiac: Regular rate
Lung: No respiratory distress, no tachypnea
Abdomen: Soft, grossly nontender to palpation
MSK: No gross deformity or injuries
Skin: Good color, no pallor or jaundice, no rashes
Neuro: AO x3, moves all extremities freely
Psych: Calm, cooperative
Course
Orders/Labs/Results
Orders:
Orders
01/02/25 11:34
Complete Blood Count/With Diff Urgent
Comprehensive Metabolic Panel Urgent
Lipase Urgent
Abnormal Lab Results
01/02/25
11:34
Glucose 109 H mg/dl
(70-99)
Albumin 5.1 H g/dl
(3.5-5.0)
01/02/25 11:34
01/02/25 11:34
Vital Signs
Initial and Last Documented VS:
Initial Vital Signs
Temp Pulse Resp BP Pulse Ox
99.0 F 86 16 160/100 98
01/02/25 11:27 01/02/25 11:27 01/02/25 11:27 01/02/25 11:27 01/02/25 11:27
Last Documented Vital Signs
Temp Pulse Resp BP Pulse Ox
99.0 F 97 18 108/61 99
01/02/25 11:27 01/02/25 14:13 01/02/25 14:13 01/02/25 14:13 01/02/25 14:13
MDM/Problems Addressed
MDM/Problems Addressed:
Patient's labs are reassuring, palpation of the abdomen is benign. Do not feel strongly this would represent recurrent diverticulitis given his clinical wellness and stability at this time. Do not see indication for urgent CT
*Critical Care Note
Total Time (30-74mins, 75-104mins- exclusive of procedures): Not Applicable
ED Attending Note
-
Portions of this chart may have been created with voice recognition software.� Occasional wrong word or��sound alike� substitutions may have occurred due to the inherent limitations of voice recognition software.
Discharge Plan
Departure
Patient Disposition: Home (Routine Discharge)
Date of Disposition: 01/02/25
Time of Disposition: 13:58
Patient with high blood pressure during this ER visit?: No
Discharge Problem:
Abdominal pain
Instructions: Clear Liquid Diet
Prescriptions:
No Action
rosuvastatin 10 mg tablet
10 mg PO DAILY
amoxicillin-pot clavulanate 875-125 mg tablet
1 tab PO Q8H Qty: 39 0RF
Referrals:
Maura Bravo MD [Family Provider] -
Activity Restrictions/Additional Instructions:
I recommend clear liquids for 48 hours, obtain CT as an outpatient if you choose to through your primary doctor
Interventions
Interventions:
*Risk Screen - Suicide Last Done: 01/02/25 11:27
*General Assessment Last Done: 01/02/25 14:16
*Neglect/Abuse Screening Last Done: 01/02/25 11:27
*ED- Fall Risk Assessment Last Done: 01/02/25 14:16
*Nursing Disposition Last Done: 01/02/25 14:17
IU-Mefcoi-Fzqzywpnja Assessment Last Done: 01/02/25 14:00
Discharge Date and Time
Discharge Date/Time: 01/02/25 14:17
Print Language: [id number]
[2025-01-02 14:13] VITALS: BP 108/61
== END 2025-01-02 14:17 | disposition home or self-care (01) ==
LOC: EMR 11:22
PROVIDERS: EMERGENCY PHYSICIAN Student in an Organized Health Care Education/Training Program; FAMILY PHYSICIAN Internal Medicine
DX: R10.84 Generalized abdominal pain (principal); Z90.49 Acquired absence of other specified parts of digestive tract; Z87.19 Personal history of other diseases of the digestive system
CPT/HCPCS: 99283; 80053; 83690; 85025